=== PATIENT | female | born 1995 | race African-American/Black ===

== ENCOUNTER 2021-06-10 11:02 | Emergency (ER) | payer OTHER, SELFPAY ==
[2021-06-10 11:58] VITALS: BP 127/72; PULSE 85; RESP 18; TEMP 36.8; O2SAT 100
--- NOTE | 2021-06-10 12:56 | ED.URI ---
HPI - URI/Sore Throat General Chief Complaint: Upper Respiratory Infection Stated Complaint: sorethroat Time Seen by Provider: 06/10/21 12:50 Source: patient and RN notes reviewed Mode of arrival: ambulatory Limitations: no limitations History of Present Illness HPI Narrative: Patient presents today with a 2-day history of sore throat, nasal drainage, night sweats, congestion and rhinorrhea. State sore throat worsened last night, but has improved through the day today. She currently rates her pain 3/10 and has been taking TheraFlu and NyQuil with some relief. MD elicited complaint: sore throat Related Data Home Medications Medication Instructions Recorded Confirmed Unknown Control 06/10/21 Allergies Allergy/AdvReac Type Severity Reaction Status Date / Time amoxicillin [From Amoxil] AdvReac Gastrointestinal Verified 06/10/21 12:40 Upset Review of Systems Review of Systems: CONSTITUTIONAL: Denies body aches, fever, chills. + Night sweats EYES: Denies visual changes, redness, or discharge. ENT: Denies otalgia.+ Rhinorrhea, congestion, nasal drainage, sore throat CARDIOVASCULAR: Denies chest pain, palpitations, or edema. RESPIRATORY: Denies cough or dyspnea. GASTROINTESTINAL: Denies abdominal pain, nausea, vomiting, or diarrhea. GENITOURINARY: Denies dysuria or hematuria. SKIN: Denies rash, itching, or wounds. MUSCULOSKELETAL: Denies back pain, joint pain, or myalgia. NEUROLOGIC: Denies headache, numbness, tingling, or weakness. PSYCH: Denies depression or anxiety. PMFSH Comments At time of signature, I have reviewed and agree with nursing past medical, surgical, social and family history unless otherwise noted. Please see nursing chart for further information. There is no relevant family history pertinent to the presenting complaint Exam Narrative: GENERAL: Well-appearing, well-nourished, and in no acute distress. HEAD: Normocephalic, atraumatic. EYES: EOMI. No redness or drainage. Conjunctivae normal. ENT: Mucous membranes pink and moist. Nares clear. No rhinorrhea. TMs normal bilaterally. Throat slightly erythematous without edema or exudate. Uvula midline. NECK: Normal AROM. Supple. No lymphadenopathy. CHEST: No respiratory distress. Clear to auscultation. HEART: Regular rate and rhythm. No murmur appreciated. Normal peripheral pulses. EXTREMITIES: Normal range of motion. No edema. SKIN: Warm, dry, no rash. Capillary refill normal. Normal skin turgor. NEURO: No focal deficits. Alert and oriented x3. Gait steady. PSYCH: Normal affect. No signs of depression or anxiety. Course Course Level of Care: Express Care Visit Vital Signs Vital signs: Vital Signs Temperature 98.2 F 06/10/21 11:58 Pulse Rate 85 06/10/21 11:58 Respiratory Rate 18 06/10/21 11:58 Blood Pressure 127/72 06/10/21 11:58 Pulse Oximetry 100 06/10/21 11:58 Temperature 98.2 F 06/10/21 11:58 Pulse Rate 85 06/10/21 11:58 Respiratory Rate 18 06/10/21 11:58 Blood Pressure 127/72 06/10/21 11:58 Pulse Oximetry 100 06/10/21 11:58 Reviewed. Pt has been instructed to follow up with her PCP regarding her elevated blood pressure today. MDM - URI/Sore Throat Differential Diagnosis Differential diagnosis: Likely upper respiratory infection, otitis media, viral infection, pharyngitis and other (Strep throat) Lab Data Attestation: I reviewed the patient's lab results. Labs: Strep Screen Presumptive Negative *(Reference Range: Negative)* Critical Care Time Critical Care Time Critical Care Time: No Discharge Plan Discharge Clinical Impression: Pharyngitis Qualifiers: Pharyngitis/tonsillitis etiology: unspecified etiology Qualified Code(s): J02.9 - Acute pharyngitis, unspecified Patient Disposition: Home, Self-Care Condition: Stable Instructions: Pharyngitis (ED) Additional Instructions: Your rapid strep swab was neg
== END 2021-06-10 13:08 | disposition home or self-care (01) ==
PROVIDERS: Emergency Provider Nurse Practitioner
DX: J02.9 Acute pharyngitis, unspecified (principal)
CPT/HCPCS: 87081; 87880; 99203; G0463